=== PATIENT | female | born 1980 | race Caucasian/White ===

== ENCOUNTER 2018-08-08 12:35 | Inpatient (IN) ==
[2018-08-08 13:02] LABS: Appearance Urine Clear (Clear); Bilirubin Urine Negative (Negative); Color Urine Yellow; Glucose Urine UA Negative (Negative); Ketones Urine Negative (Negative); Leukocyte Esterase Urine Negative (Negative); Nitrite Urine Negative (Negative); Protein Urine Negative (Negative); Urobilinogen Urine Negative (Negative); pH Urine 6.5 (4.5-7.5)
[2018-08-08 13:24] LABS: Amphetamines+Metham, Urine Neg (Neg); Barbiturates, Urine Neg (Neg); Benzodiazepine, Urine Neg (Neg); Cocaine, Urine Neg (Neg); MDMA (Ecstacy), Urine Pos (Neg); Methadone, Urine Neg (Neg); Opiate, Urine Neg (Neg); Phencyclidine, Urine Neg (Neg)
[2018-08-08 13:47] LABS: Basophils # (auto) 0.04 K/uL (0-0.2); Basophils % (auto) 0.5 %; Eosinophils # (auto) 0.07 K/uL (0-0.5); Eosinophils % (auto) 0.9 %; Hematocrit (blood only) 42.7 % (37-47); Hemoglobin 14.9 g/dL (12.0-16.0); Immature Granulocytes # (auto) 0.02 K/uL (0.00-0.02); Immature Granulocytes % (auto) 0.3 %; Lymphocytes # (auto) 1.55 K/uL (1.2-3.4); Lymphocytes % (auto) 20.7 %; Mean Corpuscular Hgb Conc 34.9 g/dL (32-36); Mean Corpuscular Volume 93.2 fL (80-100); Mean Platelet Volume 10.2 fL (7.4-10.4); Monocytes # (auto) 0.48 K/uL (0.11-0.59); Monocytes % (auto) 6.4 %; Neutrophils # (auto) 5.33 K/uL (1.4-6.5); Neutrophils % (auto) 71.2 %; Platelet Count 247 K/uL (130-400); RDW Coefficient of Variation 12.1 % (11.5-14.5); RDW Standard Deviation 40.7 fL (36.4-46.3); Red Blood Count 4.58 M/uL (4.2-5.4); White Blood Count 7.49 K/uL (4.8-10.8)
[2018-08-08 14:04] LABS: BUN Creatinine Ratio 10.9 (10-20); Calcium 9.6 mg/dl (8.5-10.1); Creatinine Clr Calc Pharmacy 86.3 ml/min; Est GFR (African American) 85.3; Est GFR (Non-African American) 73.6; Potassium 3.6 mmol/L (3.5-5.1)
[2018-08-08 14:07] LABS: Acetaminophen < 2 ug/ml (10-30)
[2018-08-08 14:08] LABS: Salicylate < 1.7 mg/dl (2.8-20)
[2018-08-08 14:15] LABS: Albumin Globulin Ratio 1.2 (0.9-2); Bilirubin,Total 0.4 mg/dl (0.2-1); Globulin 3.3 gm/dl (2.5-4.0); Total Protein 7.3 gm/dl (6.4-8.2)
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
[2018-08-08] MEDS ORDERED: MAGNESIUM HYDROXIDE SUSP 30 ML UDC PO PRN (16:04)
[2018-08-08] MEDS ORDERED: ALUMINUM/MAGNESIUM SUSP 30 ML UDC PO PRN (16:04)
[2018-08-08] MEDS ORDERED: BISMUTH SUBSALICYLATE PER ML OMNICELL CHARGE PO PRN (16:04)
[2018-08-08] MEDS ORDERED: SODIUM CHLORIDE 0.65% NA SOLN 45 ML (OCEAN) PRN (16:04)
[2018-08-08] MEDS ORDERED: LORazepam 1 MG TAB PO STA (16:33)
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
[2018-08-08] MEDS ORDERED: ALPRAZolam 0.5 MG TABLET PO PRN (17:56)
[2018-08-08] MEDS ORDERED: ZOLPIDEM TARTRATE 10 MG TAB PO PRN (17:56)
[2018-08-09] MEDS: FLUOXETINE HCL 10 MG CAP PO SCH (08:40)
[2018-08-09] MEDS: BuPROPion XL 150 MG TABCR PO SCH (08:40)
[2018-08-09] MEDS: BusPIRone 15 MG TAB PO SCH (08:40)
[2018-08-09] MEDS: ACETAMINOPHEN 325 MG TAB PO PRN ×2 (13:15→21:46)
--- NOTE | 2018-08-09 14:44 | Psychiatric Progress Note ---
Date of Service August 09, 2018 Impression / Recommendations Impression This 38-year-old woman has a long history of depression, anxiety, and, more recently, panic disorder. She reports that she had been fairly stable in the community while being treated for depression by her primary care physician's registered nurse first assistant, with medications that included fluoxetine 20 mg a day (previously 10 mg twice daily), buspirone 10 mg twice a day (previously 5 mg 3 times daily "as needed"), and bupropion 75 mg twice a day. However after she reported an incident at school for investigation it has changed the tenor of her work environment and she feels "shunned" and this has worsened her anxiety and depression. She was not sleeping, worsening of anxiety and mood, and presented for voluntary admission after referral to ER by her PCM PA whom she disclosed thoughts of suicide ("would shoot myself if I had a gun"). (1) Depression with suicidal ideation: 08/08 -Admit to the behavioral health unit with 15-minute checks and suicide precautions. -Provide individual, group, and activity therapies as scheduled. -Increase dose of fluoxetine from 20 mg a day to 30 mg a day. -Discontinue bupropion 75 mg twice a day and begin bupropion XL 150 mg once a day. -Increase BuSpar to 15 mg twice a day. -Hydroxyzine 25 mg twice a day for generalized anxiety -Alprazolam 0.5 mg p.o. twice daily as needed for panic attacks. -Ambien 10 mg at bedtime as needed for sleep. 08/09 - continue plan as above she appears to be tolerating changes at this time, and engaged in milieu and learning in groups (2) Anxiety: 08/08 -Increase Prozac to 30 mg daily to address anxiety and depression. -Increase buspirone to a dose of 15 mg twice a day for anxiety -Use as needed hydroxyzine 25 mg twice a day for generalized anxiety. -Alprazolam 0.5 mg up to twice a day by mouth (or sublingually) for panic -Stress management and coping strategy teaching 08/09 - continue above, she appears to be engaging in the milieu and groups and reports learning, encouraged mindfulness exercise for bedtime and self-soothing in the future Inventory Assets Strengths: Dedicated to her children. Supportive and happy marriage. Positive work history Needs: Recovery from depression, anxiety, and panic attacks. The patient may also have posttraumatic stress disorder. 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 Review of Systems Notes denies BOX, denies GI concerns, denies cognitive side effects, or activation denies other physical concerns on ROS today when asked Sleep Information Total Hours of Sleep: 5.25 Sleep Comments: received a dose of ambien at for sleep aid Meal Information Percent Meal Consumed - Breakfast: 50 Percent Meal Consumed - Lunch: 75 Percent Meal Consumed - Dinner: 0 Subjective Subjective Patient was seen & assessed and interval progress reviewed with Treatment Team Pearl states she is tolerating the medication changes. She slept for the first time in 4 days last night s/p ambien. She took her morning mecdications and denies SE. She did feel anxious all morning and attempted CBT skills taught in group. She then did ask for an ativan and feels that helped. 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 THe teacher has been difficult in the regards of being cynical and critical of the patient at times over small details, but not open to any feedback even when delivered in a general softened effort, and has criticized the patient for small things. The teacher told the patient she could see her anxiety and this prompted patient to start the buspar and patient felt overall things had been going reasonably for sometime. After the reported incident the teacher accused the patient of "retaliating" and the patient states it was nothing of the sort and she has tried very hard to make the relationship work and just wanted to finish the year that she was not harboring ill will. Pearl feels the two aids int eh classroom have unnecessarily taken sides.The pearl is a sensistive person and avoids conflict and it takes great effort and intention to be assertive and so tolerating an even non-verbal level of hostility or rejection is hard for her. She feels releived being here, knowing she will work with HR not to return to the classroom over the last 10days of the school year, has requested an alternate placement for next year. She further feels the groups, staff, sleep and med changes are "all helpful I think." Physical Exam Psychiatric Orientation: oriented x 3 Apperance: appropriately dressed and appropriately groomed Eye Contact: good eye contact Motor Behavior: + psychomotor agitation (she does reposition in her chair quite often) Speech: normal rate/rhythm/volume of speech (The patient's voice is somewhat tremulous and anxious breathless quality) Affect: + anxious affect Mood: + depressed mood and + anxious mood Thought Process: goal directed thought process, linear/logical thought process and clear/coherent thought process Thought Content: reality based without delusions Suicidal Thoughts: denies suicidal thoughts (today inpatient) Homicidal Thoughts: denies homicidal thoughts Hallucinations: no auditory hallucinations Cognition: recent memory grossly intact, remote memory grossly intact, attention grossly intact and language grossly intact Estimated Intelligence: + above average estimated intelligence Insight: good insight Judgement: good judgement Vital Signs (Past 24 Hours) Last Vital Signs Temp 37.1 C 08/09/18 06:41 Pulse 73 08/09/18 06:41 Resp 16 08/09/18 06:41 BP 120/85 08/09/18 06:41 Pulse Ox 99 08/08/18 16:17 Results & Data Current Inpatient Medications Current Inpatient Medications: Current Inpatient Medications Acetaminophen (Tylenol) 650 mg PO Q4H PRN PRN Reason: Headache or Minor Fever Stop: 09/07/18 16:03 Last Admin: 08/09/18 13:15 Dose: 650 mg Documented by: Al Hydrox/Mg Hydrox/Simethicone (Maalox) 30 ml PO Q4H PRN PRN Reason: GI Upset Stop: 09/07/18 16:03 Alprazolam (Xanax) 0.5 mg PO Q6H PRN PRN Reason: panic attacks Stop: 09/07/18 17:55 Last Admin: 08/09/18 08:41 Dose: 0.5 mg Documented by: Bismuth Subsalicylate (Kaopectate) 15 ml PO PRN PRN PRN Reason: Loose Stool Stop: 09/07/18 16:03 Bupropion HCl (Wellbutrin-Xl) 150 mg PO QAM [facility] Stop: 09/08/18 08:59 Last Admin: 08/09/18 08:40 Dose: 150 mg Documented by: Buspirone HCl (Buspar) 15 mg PO QAM [facility] Stop: 09/08/18 08:59 Last Admin: 08/09/18 08:40 Dose: 15 mg Documented by: Fluoxetine HCl (Prozac) 30 mg PO QAM [facility] Stop: 09/08/18 08:59 Last Admin: 08/09/18 08:40 Dose: 30 mg Documented by: Hydroxyzine HCl (Vistaril) 50 mg PO HSZ PRN PRN Reason: Insomnia Stop: 09/07/18 16:03 Hydroxyzine HCl (Vistaril) 25 mg PO Q4H PRN PRN Reason: Anxiety Stop: 09/07/18 16:03 Magnesium Hydroxide (Milk Of Magnesia) 30 ml PO DAILY PRN PRN Reason: Heartburn Stop: 09/07/18 16:03 Sodium Chloride ([place] Nasal) 1 - 2 sprays NA PRN PRN PRN Reason: Nasal Dryness/Congestion Stop: 09/07/18 16:03 Zolpidem Tartrate (Ambien) 10 mg PO HS PRN PRN Reason: Sleep Stop: 09/07/18 17:55 Last Admin: 08/08/18 21:01 Dose: 10 mg Documented by: Post Discharge Appointments Primary Care Physician Name Of Family Doctor: Tiffanie Perales Therapist Name of Therapist: None Thermometer Maker Name of Thermometer Maker: None CPT Code CPT Code 67417
[2018-08-10] MEDS: BusPIRone 15 MG TAB PO SCH ×2 (07:49→21:26)
[2018-08-10] MEDS: BuPROPion XL 150 MG TABCR PO SCH (07:49)
[2018-08-10] MEDS: FLUOXETINE HCL 10 MG CAP PO SCH (07:49)
--- NOTE | 2018-08-10 11:56 | Psychiatric Progress Note ---
Date of Service August 10, 2018 Impression / Recommendations Impression This 38-year-old woman has a long history of depression, anxiety, and, more recently, panic disorder. She reports that she had been fairly stable in the community while being treated for depression by her primary care physician's photographer's assistant, with medications that included fluoxetine 20 mg a day (previously 10 mg twice daily), buspirone 10 mg twice a day (previously 5 mg 3 times daily "as needed"), and bupropion 75 mg twice a day. However after she reported an incident at school for investigation it has changed the tenor of her work environment and she feels "shunned" and this has worsened her anxiety and depression. She was not sleeping, worsening of anxiety and mood, and presented for voluntary admission after referral to ER by her PCM PA whom she disclosed thoughts of suicide ("would shoot myself if I had a gun"). (1) Depression with suicidal ideation: 08/08 -Admit to the behavioral health unit with 15-minute checks and suicide precautions. -Provide individual, group, and activity therapies as scheduled. -Increase dose of fluoxetine from 20 mg a day to 30 mg a day. -Discontinue bupropion 75 mg twice a day and begin bupropion XL 150 mg once a day. -Increase BuSpar to 15 mg twice a day. -Hydroxyzine 25 mg twice a day for generalized anxiety -Alprazolam 0.5 mg p.o. twice daily as needed for panic attacks. -Ambien 10 mg at bedtime as needed for sleep. 08/09 - continue plan as above she appears to be tolerating changes at this time, and engaged in milieu and learning in groups 08/10/18 - ongoing fluctation in mood seems to be driven by anxious states, her anxiety prior to sleep and upon waking, realized that buspar was ordered 15mg qam only will move to bid to help regulate level and hopefully help anxiety, also giving fluoxetine change more time to assist. (2) Anxiety: 08/08 -Increase Prozac to 30 mg daily to address anxiety and depression. -Increase buspirone to a dose of 15 mg twice a day for anxiety -Use as needed hydroxyzine 25 mg twice a day for generalized anxiety. -Alprazolam 0.5 mg up to twice a day by mouth (or sublingually) for panic -Stress management and coping strategy teaching 08/09 and 08/10 - continue above, she appears to be engaging in the milieu and groups and reports learning, encouraged mindfulness exercise for bedtime and self-soothing in the future Inventory Assets Strengths: Dedicated to her children. Supportive and happy marriage. Positive work history Needs: Recovery from depression, anxiety, and panic attacks. The patient may also have posttraumatic stress disorder. Risk Factors Assessment Male: No : Yes Do You Have Access To A Gun?: No Health Problems: No Mental Health Diagnoses: Yes Substance Use Disorders: No Previous Attempt: Yes Previous Attempt; Highly Lethal: No Previous Attempt; Planned: Yes Previous Attempt; Didn't Tell Anyone: No Family History of Suicide: No Previous Psychiatric Hospitalization: No Hopelessness: No Smoker: No Protective Factors Assessment Mormonism Beliefs: Yes : Yes Responsible for Young Children: Yes Employed: Yes ([employer]) Stable Relationships: Yes Supportive Family: Yes Good Rapport with Provider: Yes Absence of Any Risk Factors Above: No Interval History Chief Complaint "I am really trying to learn things to help with my mood and anxiety". Review of Systems Sleep Information Total Hours of Sleep: 6.75 Sleep Comments: received a prn dose of vistaril for sleep aid Meal Information Percent Meal Consumed - Breakfast: 100 Percent Meal Consumed - Lunch: 75 Percent Meal Consumed - Dinner: 90 Subjective Subjective Patient was seen & assessed and interval progress reviewed with Treatment Team. - She notes her anxiety was very high this AM when she woke up and felt very anxious, she has tried to use coping skills through the day. Her anxiety was a 7/10, and mood 3/10 this morning. As the day has gone on and she has been to group and taken her medications she feels at a 7/10mood and 3/10 anxiety. SHe feels more hopeful. She had panic x1 yesterday. 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 She is able to tolerate the discussion of "holding both doors open" and exploring over time, as this type of situtation we would expect would be low probability to recur. She tolerates this discussion and affirms that she has time to think on it prior to making any decisions. Affirmed her efforts to use coping skills. ROS - she denies physical concerns other than BOX yestserday Physical Exam Psychiatric Orientation: oriented x 3 Apperance: appropriately dressed and appropriately groomed Eye Contact: good eye contact Motor Behavior: + psychomotor agitation (she does reposition in her chair quite often, sits forward in her seat) Speech: normal rate/rhythm/volume of speech (The patient's voice is somewhat tremulous and anxious breathless quality) Affect: + anxious affect Mood: + depressed mood and + anxious mood Thought Process: goal directed thought process, linear/logical thought process and clear/coherent thought process Thought Content: reality based without delusions Suicidal Thoughts: denies suicidal thoughts (today inpatient) Homicidal Thoughts: denies homicidal thoughts Hallucinations: no auditory hallucinations Cognition: recent memory grossly intact, remote memory grossly intact, attention grossly intact and language grossly intact Estimated Intelligence: + above average estimated intelligence Insight: good insight Judgement: good judgement Vital Signs (Past 24 Hours) Last Vital Signs Temp 36.7 C 08/10/18 06:37 Pulse 77 08/10/18 06:37 Resp 18 08/10/18 06:37 BP 114/80 08/10/18 06:37 Pulse Ox 99 08/08/18 16:17 Results & Data Current Inpatient Medications Current Inpatient Medications: Current Inpatient Medications Acetaminophen (Tylenol) 650 mg PO Q4H PRN PRN Reason: Headache or Minor Fever Stop: 09/07/18 16:03 Last Admin: 08/09/18 21:46 Dose: 650 mg Documented by: Al Hydrox/Mg Hydrox/Simethicone (Maalox) 30 ml PO Q4H PRN PRN Reason: GI Upset Stop: 09/07/18 16:03 Alprazolam (Xanax) 0.5 mg PO Q6H PRN PRN Reason: panic attacks Stop: 09/07/18 17:55 Last Admin: 08/09/18 08:41 Dose: 0.5 mg Documented by: Bismuth Subsalicylate (Kaopectate) 15 ml PO PRN PRN PRN Reason: Loose Stool Stop: 09/07/18 16:03 Bupropion HCl (Wellbutrin-Xl) 150 mg PO QAM [facility] Stop: 09/08/18 08:59 Last Admin: 08/10/18 07:49 Dose: 150 mg Documented by: Buspirone HCl (Buspar) 15 mg PO QAM [facility] Stop: 09/08/18 08:59 Last Admin: 08/10/18 07:49 Dose: 15 mg Documented by: Fluoxetine HCl (Prozac) 30 mg PO QAM [facility] Stop: 09/08/18 08:59 Last Admin: 08/10/18 07:49 Dose: 30 mg Documented by: Hydroxyzine HCl (Vistaril) 50 mg PO HSZ PRN PRN Reason: Insomnia Stop: 09/07/18 16:03 Last Admin: 08/09/18 23:03 Dose: 50 mg Documented by: Hydroxyzine HCl (Vistaril) 25 mg PO Q4H PRN PRN Reason: Anxiety Stop: 09/07/18 16:03 Magnesium Hydroxide (Milk Of Magnesia) 30 ml PO DAILY PRN PRN Reason: Heartburn Stop: 09/07/18 16:03 Sodium Chloride ([place] Nasal) 1 - 2 sprays NA PRN PRN PRN Reason: Nasal Dryness/Congestion Stop: 09/07/18 16:03 Zolpidem Tartrate (Ambien) 10 mg PO HS PRN PRN Reason: Sleep Stop: 09/07/18 17:55 Last Admin: 08/08/18 21:01 Dose: 10 mg Documented by: Post Discharge Appointments Primary Care Physician Name Of Family Doctor: Tiffanie Perales Therapist Name of Therapist: None Cripple Chaser Name of Cripple Chaser: None CPT Code CPT Code 01245
[2018-08-10] MEDS ORDERED: IBUPROFEN 600 MG TAB PO PRN (12:00)
[2018-08-11] MEDS: BusPIRone 15 MG TAB PO SCH ×2 (09:05→21:57)
[2018-08-11] MEDS: FLUOXETINE HCL 10 MG CAP PO SCH (09:05)
[2018-08-11] MEDS: BuPROPion XL 150 MG TABCR PO SCH (09:05)
--- NOTE | 2018-08-11 13:11 | Psychiatric Progress Note ---
Date of Service August 11, 2018 Impression / Recommendations Impression This 38-year-old woman has a long history of depression, anxiety, and, more recently, panic disorder. She reports that she had been fairly stable in the community while being treated for depression by her primary care physician's assistant professor of education, with medications that included fluoxetine 20 mg a day (previously 10 mg twice daily), buspirone 10 mg twice a day (previously 5 mg 3 times daily "as needed"), and bupropion 75 mg twice a day. However after she reported an incident at school for investigation it has changed the tenor of her work environment and she feels "shunned" and this has worsened her anxiety and depression. She was not sleeping, worsening of anxiety and mood, and presented for voluntary admission after referral to ER by her PCM PA whom she disclosed thoughts of suicide ("would shoot myself if I had a gun"). (1) Depression with suicidal ideation: 08/08 -Admit to the behavioral health unit with 15-minute checks and suicide precautions. -Provide individual, group, and activity therapies as scheduled. -Increase dose of fluoxetine from 20 mg a day to 30 mg a day. -Discontinue bupropion 75 mg twice a day and begin bupropion XL 150 mg once a day. -Increase BuSpar to 15 mg twice a day. -Hydroxyzine 25 mg twice a day for generalized anxiety -Alprazolam 0.5 mg p.o. twice daily as needed for panic attacks. -Ambien 10 mg at bedtime as needed for sleep. 08/09 - continue plan as above she appears to be tolerating changes at this time, and engaged in milieu and learning in groups 08/10/18 - ongoing fluctuation in mood seems to be driven by anxious states, her anxiety prior to sleep and upon waking, realized that buspar was ordered 15mg qam only will move to bid to help regulate level and hopefully help anxiety, also giving fluoxetine change more time to assist. 08/11/18 - she did have panic at 330 am despite bid dosing of buspar yesterday but did not take vistaril at hs (did take at 330 with abiltiy to return to sleep) Encouraged her to take vistaril nightly for the next week to ensure good sleep, and then gave her a strategy to "stick her toe in the water" and see if she can not take it for two separate nights and then to wean from there. COntinue prozac and buspar as prescribed, watch prozac for culprit of early AM activation but low on differential. She may benefit from prn xanax or prn vistaril at time of discharge Affirmed her motivation and active participation in groups and the strategies being taught Noted that FMLA may or may not be completed while inpatient depending on date and time of outpatient appts Need to secure aftercare prior to discharge and assure intact sleep and anxiety managment strategies, premature discharge may lead to high anxiety and poor f/u leading to risk of return of high distress and safety concerns (2) Anxiety: 08/08 -Increase Prozac to 30 mg daily to address anxiety and depression. -Increase buspirone to a dose of 15 mg twice a day for anxiety -Use as needed hydroxyzine 25 mg twice a day for generalized anxiety. -Alprazolam 0.5 mg up to twice a day by mouth (or sublingually) for panic -Stress management and coping strategy teaching 08/09 and 08/10 and 08/11 - continue as noted above under anxiety and depression, she appears to be engaging in the milieu and groups and reports learning, encouraged mindfulness exercise for bedtime and self-soothing in the future Inventory Assets Strengths: Dedicated to her children. Supportive and happy marriage. Positive work history Needs: Recovery from depression, anxiety, and panic attacks. The patient may also have posttraumatic stress disorder. 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 Review of Systems Sleep Information Total Hours of Sleep: 6.75 Sleep Comments: pt on q-15 minute checks Meal Information Percent Meal Consumed - Breakfast: 100 Percent Meal Consumed - Lunch: 100 Percent Meal Consumed - Dinner: 50 Subjective Subjective Patient was seen & assessed and interval progress reviewed with Treatment Team. She shares that she awoke last night in a panic attack at 330 SOB, increased HR, racing thougths, feeling of anxiety and pending doom. SHe dneies Snoring or s/sx of sleep apnea. She did to to nursing station after efforts to self soothe did not work. She elt the medication was helpful, vistaril and returned to sleep after about 20-30min. She notes that her mood is "okay" but she noted that she felt anxious in group today when another patient was anxious today. She notes she is prone to absorb the emotions of others and recognized this and left the room to work on her own anxiety and did activities of distraction and mindfulness with some benefit. She notes overall her mood and anxiety in the day are improved but she worries about the night. She asks for assistance in knowing how long to do CBT efforts before taking a medication, and wonders about FMLA ROS - denies physical concerns on ROS other than the panic symptoms she had last night Physical Exam Psychiatric Orientation: oriented x 3 Apperance: appropriately dressed and appropriately groomed Eye Contact: good eye contact and + fair eye contact Motor Behavior: + psychomotor agitation (she does seem eager to please, nodding, sits forward in her seat) Speech: normal rate/rhythm/volume of speech (The patient's voice is somewhat tremulous and anxious breathless quality) Affect: + anxious affect Mood: + anxious mood Thought Process: goal directed thought process, linear/logical thought process and clear/coherent thought process Thought Content: reality based without delusions (anxious anticipation) Suicidal Thoughts: denies suicidal thoughts (today inpatient) Homicidal Thoughts: denies homicidal thoughts Hallucinations: no auditory hallucinations Cognition: recent memory grossly intact, remote memory grossly intact, attention grossly intact and language grossly intact Estimated Intelligence: + above average estimated intelligence Insight: good insight Judgement: good judgement Vital Signs (Past 24 Hours) Last Vital Signs Temp 36.7 C 08/11/18 06:56 Pulse 77 08/11/18 06:56 Resp 18 08/11/18 06:56 BP 110/80 08/11/18 06:56 Pulse Ox 99 08/08/18 16:17 Results & Data Current Inpatient Medications Current Inpatient Medications: Current Inpatient Medications Acetaminophen (Tylenol) 650 mg PO Q4H PRN PRN Reason: Headache or Minor Fever Stop: 09/07/18 16:03 Last Admin: 08/09/18 21:46 Dose: 650 mg Documented by: Al Hydrox/Mg Hydrox/Simethicone (Maalox) 30 ml PO Q4H PRN PRN Reason: GI Upset Stop: 09/07/18 16:03 Alprazolam (Xanax) 0.5 mg PO Q6H PRN PRN Reason: panic attacks Stop: 09/07/18 17:55 Last Admin: 08/09/18 08:41 Dose: 0.5 mg Documented by: Bismuth Subsalicylate (Kaopectate) 15 ml PO PRN PRN PRN Reason: Loose Stool Stop: 09/07/18 16:03 Bupropion HCl (Wellbutrin-Xl) 150 mg PO QAM [facility] Stop: 09/08/18 08:59 Last Admin: 08/11/18 09:05 Dose: 150 mg Documented by: Buspirone HCl (Buspar) 15 mg PO BID [facility] Stop: 09/09/18 20:59 Last Admin: 08/11/18 09:05 Dose: 15 mg Documented by: Fluoxetine HCl (Prozac) 30 mg PO QAM [facility] Stop: 09/08/18 08:59 Last Admin: 08/11/18 09:05 Dose: 30 mg Documented by: Hydroxyzine HCl (Vistaril) 50 mg PO HSZ PRN PRN Reason: Insomnia Stop: 09/07/18 16:03 Last Admin: 08/09/18 23:03 Dose: 50 mg Documented by: Hydroxyzine HCl (Vistaril) 25 mg PO Q4H PRN PRN Reason: Anxiety Stop: 09/07/18 16:03 Last Admin: 08/11/18 03:50 Dose: 25 mg Documented by: Ibuprofen (Motrin) 600 mg PO Q8H PRN PRN Reason: Headache or Pain Stop: 09/09/18 11:59 Magnesium Hydroxide (Milk Of Magnesia) 30 ml PO DAILY PRN PRN Reason: Heartburn Stop: 09/07/18 16:03 Sodium Chloride ([place] Nasal) 1 - 2 sprays NA PRN PRN PRN Reason: Nasal Dryness/Congestion Stop: 09/07/18 16:03 Zolpidem Tartrate (Ambien) 10 mg PO HS PRN PRN Reason: Sleep Stop: 09/07/18 17:55 Last Admin: 08/08/18 21:01 Dose: 10 mg Documented by: Post Discharge Appointments Primary Care Physician Name Of Family Doctor: Tiffanie Perales Therapist Name of Therapist: None [employer] Saw Tender Name of [employer] Saw Tender: None CPT Code CPT Code 94374
[2018-08-12] MEDS: BuPROPion XL 150 MG TABCR PO SCH (08:46)
[2018-08-12] MEDS: BusPIRone 15 MG TAB PO SCH (08:46)
[2018-08-12] MEDS: FLUOXETINE HCL 10 MG CAP PO SCH (08:46)
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
== END 2018-08-12 16:00 | disposition home or self-care (01) | DRG 885 ==
LOC: ED 12:35 → 3S 16:05
DX: R45.851 Suicidal ideations; F33.2 Major depressive disorder, recurrent severe without psychotic features; F41.1 Generalized anxiety disorder; F41.0 Panic disorder [episodic paroxysmal anxiety]; Z81.8 Family history of other mental and behavioral disorders